=== PATIENT | female | born 1985 | race African-American/Black ===

== ENCOUNTER 2018-08-01 06:00 | Inpatient (IN) ==
[2018-08-01] MEDS ORDERED: FAMOTIDINE 20 MG/2 ML VIAL IV ONE (06:20)
[2018-08-01] MEDS ORDERED: ceFAZolin 3,000 MG in SYRINGE 1 EACH IV ONE (06:20)
[2018-08-01] MEDS ORDERED: CITRIC ACID/SODIUM CITRATE 30 ML UDCUP PO ONE (06:20)
[2018-08-01] MEDS ORDERED: ROPIVACAINE 0.5% 30 ML VIAL ONE (06:36)
[2018-08-01] MEDS: LACTATED RINGERS 1,000 ML IV SCH ×3 (06:45→13:22)
[2018-08-01 06:46] LABS: Basophils % 0.3 % (0.0-0.8); Eosinophils # 0.1 10*3/uL (0.0-0.87); Eosinophils % 1.4 % (0.00-10.9); Hematocrit 28.2 VOL% (35.7-47.0); Hemoglobin 8.2 GM/DL (12.0-16.0); Immature Granulocytes % 0.7 %; Immature Granulocytes Absolute 0.04 #; Lymphocytes # 1.3 10*3/uL (1.4-4.0); Lymphocytes % 22.3 % (21.3-54.2); Mean Corpuscular HGB Conc 29.1 GM/DL (32-36); Mean Corpuscular Hemoglobin 21 PG (27-34); Mean Corpuscular Volume 70.5 FL (87-102); Mean Platelet Volume 9.8 FL (9.6-12.0); Monocytes # 0.6 10*3/uL (0.11-0.8); Monocytes % 10.2 % (1.7-12.7); Neutrophils # 3.8 10*3/uL (1.4-7.4); Neutrophils % 65.1 % (38.7-73.9); Platelet Count 224 T/CUMM (130-400); Red Cell Distribution Width 17.1 % (9.3-17.3); White Blood Count 5.9 T/CUMM (4-12)
[2018-08-01] MEDS ORDERED: SODIUM CHLORIDE 0.9% 100 ML IV ONE (07:04)
[2018-08-01] MEDS ORDERED: OXYTOCIN/LR 20 UNIT/1,000 ML BAG IV ONE ×3 (07:04→08:47)
[2018-08-01] MEDS ORDERED: ONDANSETRON 4 MG/2 ML VIAL IV PRN (08:47)
[2018-08-01] MEDS ORDERED: ACETAMINOPHEN 325 MG TABLET PO PRN (08:47)
[2018-08-01] MEDS ORDERED: MAGNESIUM HYDROXIDE SUSP 30 ML UDCUP PO PRN (08:47)
[2018-08-01] MEDS ORDERED: RHO(D) IMMUNE GLOBULIN 300 MCG SYRINGE IM ONE (08:47)
[2018-08-01] MEDS ORDERED: SIMETHICONE CHEW 80 MG TABLET PO PRN (08:47)
[2018-08-01] MEDS ORDERED: LACTATED RINGERS 1,000 ML IV SCH (09:00)
[2018-08-01] MEDS ORDERED: fentaNYL 100 MCG/2 ML VIAL ONE (09:21)
[2018-08-01] MEDS ORDERED: MORPHINE 10 MG/10 ML VIAL ONE (09:21)
[2018-08-01] MEDS ORDERED: BUPIVACAINE SPINAL 0.75% 2 ML AMP SPINAL ONE (09:21)
[2018-08-01 09:22] LABS: Apearance,Urine Slightly Hazy (Clear); Bilirubin,Urine Negative (Negative); Blood, Urine Negative (Negative); Glucose,Urine (UA) Negative (Negative); Ketones,Urine Negative (Negative); Nitrite,Urine Negative (Negative); Protein,Urine Negative; RBC,Urine 21 /HPF (0-4); Squamous Epithelial Cell,Urine Occasional /HPF (0-10); Urine Color Yellow (Yellow); Urine Specific Gravity 1.031 (1.001-1.035); WBC,Urine 14 /HPF (0-6)
[2018-08-01] MEDS ORDERED: diphenhydrAMINE 50 MG/1 ML VIAL IV PRN (09:59)
[2018-08-01] MEDS ORDERED: BUTORPHANOL 1 MG/ML VIAL ONE (10:46)
[2018-08-01] MEDS ORDERED: BUTORPHANOL 1 MG/ML VIAL IV ONE (10:50)
[2018-08-01] MEDS ORDERED: PROMETHAZINE 25 MG/1 ML VIAL ONE (11:41)
[2018-08-01] MEDS ORDERED: PROMETHAZINE INJ 25 MG in SODIUM CHLORIDE 0.9% 50 ML IV ONE (11:42)
[2018-08-01] MEDS: diphenhydrAMINE 50 MG/1 ML VIAL IV PRN ×2 (14:55→20:05)
[2018-08-01] MEDS: ceFAZolin 1,000 MG in SYRINGE 1 EACH IV SCH (16:36)
[2018-08-01] MEDS: IBUPROFEN 800 MG TABLET PO PRN (20:10)
[2018-08-01] MEDS: DOCUSATE SODIUM 100 MG CAPSULE PO SCH (21:35)
[2018-08-02] MEDS ORDERED: ceFAZolin 1,000 MG in SYRINGE 1 EACH IV SCH (02:30)
[2018-08-02] MEDS: ceFAZolin 1,000 MG in SYRINGE 1 EACH IV SCH (02:35)
[2018-08-02] MEDS ORDERED: HydrOXYzine PAMOATE 25 MG CAPSULE PO PRN (02:57)
[2018-08-02] MEDS: IBUPROFEN 800 MG TABLET PO PRN ×2 (04:37→23:34)
[2018-08-02 05:38] LABS: Basophils % 0.3 % (0.0-0.8); Eosinophils % 0.3 % (0.00-10.9); Hematocrit 24.1 VOL% (35.7-47.0); Hemoglobin 7.2 GM/DL (12.0-16.0); Immature Granulocytes % 0.7 %; Immature Granulocytes Absolute 0.06 #; Lymphocytes % 11.5 % (21.3-54.2); Mean Corpuscular HGB Conc 29.9 GM/DL (32-36); Mean Corpuscular Hemoglobin 21 PG (27-34); Mean Corpuscular Volume 70.1 FL (87-102); Mean Platelet Volume 9.8 FL (9.6-12.0); Monocytes # 0.7 10*3/uL (0.11-0.8); Monocytes % 7.3 % (1.7-12.7); Neutrophils # 7.2 10*3/uL (1.4-7.4); Neutrophils % 79.9 % (38.7-73.9); Platelet Count 179 T/CUMM (130-400); Red Blood Count 3.44 MC/CUMM (3.8-5.5); Red Cell Distribution Width 16.9 % (9.3-17.3); White Blood Count 9.1 T/CUMM (4-12)
[2018-08-02] MEDS: MULTIVITAMIN (PRENATAL) TABLET PO SCH (09:01)
[2018-08-02] MEDS: DOCUSATE SODIUM 100 MG CAPSULE PO SCH ×3 (09:02→21:00)
[2018-08-02] MEDS ORDERED: BISACODYL 10 MG SUPP RECTAL PRN (18:15)
[2018-08-02] MEDS ORDERED: RHO(D) IMMUNE GLOBULIN 300 MCG SYRINGE IM ONE (19:27)
[2018-08-02] MEDS: FERROUS SULFATE 325 MG TABLET PO SCH (21:00)
[2018-08-03 03:55] VITALS: BP 123/61
[2018-08-03] MEDS: FERROUS SULFATE 325 MG TABLET PO SCH (10:15)
[2018-08-03] MEDS: MULTIVITAMIN (PRENATAL) TABLET PO SCH (10:15)
[2018-08-03] MEDS: DOCUSATE SODIUM 100 MG CAPSULE PO SCH (10:15)
[2018-08-03] MEDS: IBUPROFEN 800 MG TABLET PO PRN (15:05)
== END 2018-08-03 15:56 | disposition home or self-care (01) | DRG 540 ==
LOC: N.LDOUT 06:00 → N.LD 06:03 → N.OB 13:30
PROVIDERS: ADMIT Obstetrics & Gynecology; ATTEND Obstetrics & Gynecology
PROC: LDCSECT (ICD-10-PCS; 2018-08-01 07:30)